=== PATIENT | female | born 1985 ===

== ENCOUNTER 2017-09-20 11:08 | Emergency (ER) | payer OTHER ==
[2017-09-20 11:08] VITALS: BMI 33.1
--- NOTE | 2017-09-20 11:27 | ED PDOC ---
HPI: Abdomen Time Seen by Provider: 09/20/17 11:16 Chief Complaint (Nursing): Abdominal Pain Chief Complaint (Provider): Adbominal pain History Per: Patient Additional Complaint(s): Pt is a 31 yo female, no PMH, presents to ED for evaluation of epigastric pain abdominal pain radiating to lower abdomen and right flank since last night. Reports taking Motrin without relief at 09:00 today. Denies fever, chills, nausea, vomiting, or any additional complaints. Past Medical History Reviewed: Nursing Documentation, Vital Signs Vital Signs: Last Vital Signs Temp 97.9 F 09/20/17 17:30 Pulse 66 09/20/17 17:23 Resp 16 09/20/17 17:23 BP 100/67 09/20/17 17:23 Pulse Ox 97 09/20/17 17:23 - Medical History PMH: No Chronic Diseases - Surgical History Surgical History: Appendectomy - Family History Family History: States: Unknown Family Hx, Diabetes (father), Hypertension ( mother, father) - Living Arrangements Living Arrangements: With Family - Social History Current smoker - smoking cessation education provided: No Alcohol: Social Drugs: Denies - Home Medications Home Medications: Ambulatory Orders Medication Instructions Recorded No Known Home Med 09/20/17 - Allergies Allergies/Adverse Reactions: Allergies Allergy/AdvReac Type Severity Reaction Status Date / Time No Known Allergies Allergy Verified 09/20/17 11:25 Review of Systems ROS Statement: Except As Marked, All Systems Reviewed And Found Negative Gastrointestinal: Positive for: Abdominal Pain Physical Exam - Reviewed Nursing Documentation Reviewed: Yes Vital Signs Reviewed: Yes - Physical Exam Appears: Positive for: Well, Non-toxic, No Acute Distress Head Exam: Positive for: ATRAUMATIC, NORMAL INSPECTION, NORMOCEPHALIC Skin: Positive for: Normal Color, Warm, DRY Eye Exam: Positive for: EOMI, Normal appearance, PERRL ENT: Positive for: Normal ENT Inspection Neck: Positive for: Normal, Painless ROM Cardiovascular/Chest: Positive for: Regular Rate, Rhythm Respiratory: Positive for: CNT, Normal Breath Sounds Gastrointestinal/Abdominal: Positive for: Bowel Sounds, Soft, Tenderness (taurus- umbilical) Back: Positive for: Normal Inspection, R CVA Tenderness Extremity: Positive for: Normal ROM Neurologic/Psych: Positive for: Alert, Oriented - Laboratory Results Result Diagrams: 09/20/17 11:51 09/20/17 11:51 - ECG O2 Sat by Pulse Oximetry: 100 Medical Decision Making Medical Decision Making: IV access established and treatment initiated with Toradol and Zofran XR IMPRESSION: No cholelithiasis or acute cholecystitis. Mild dilatation of the common bile duct without evidence for choledocholithiasis. On re-eval, pt reports pain continues. IV Dilaudid and Zofran administered Amylase and Lipase resulted WNL CBC and COMP resulted WNL CT scan ordered Case endorsed to STEPHANIE Cordova at 1999 pending diagnostic review and re-eval Disposition - Clinical Impression Clinical Impression: Abdominal pain in female - Patient ED Disposition Is Patient to be Admitted: Transfer of Care - Disposition Disposition: Transfer of Care Disposition Time: 19:19 Condition: STABLE Forms: [facility] (Occitan) - POA Present On Arrival: None
[2017-09-20 11:58] LABS: BASO % 0.2 % (0.0-2.0); EOS % 0.3 % (0.0-4.0); HEMATOCRIT 44.4 % (34.0-47.0); LYMPH # 1.2 K/uL (1.0-4.3); LYMPH % 13.1 % (20.0-40.0); MEAN CELL VOLUME 91.2 fl (81.0-99.0); MEAN CORPUSCULAR HEMOGLOBIN 31.3 pg (27.0-31.0); MEAN CORPUSCULAR HGB CONC 34.3 g/dL (33.0-37.0); MEAN PLATELET VOLUME 7.9 fl (7.2-11.7); MONO # 0.4 K/uL (0.0-0.8); MONO % 4.2 % (0.0-10.0); NEUT # 7.7 K/uL (1.8-7.0); NEUT % 82.2 % (50.0-75.0); NRBC % 0.1 % (0.0-0.0); RED CELL DISTRIBUTION WIDTH 12.9 % (11.5-14.5); WHITE BLOOD COUNT 9.4 K/uL (4.8-10.8)
[2017-09-20 12:13] LABS: ALB/GLOB RATIO 1.4 (1.0-2.1); ALKALINE PHOSPHATASE 68 U/L (38-126); ALT/SGPT 35 U/L (9-52); AMYLASE 45 U/L (30-110); AST/SGOT 23 U/L (14-36); BILIRUBIN,TOTAL 0.8 mg/dl (0.2-1.3); BLOOD UREA NITROGEN 15 mg/dl (7-17); CALCIUM 9.3 mg/dL (8.4-10.2); CARBON DIOXIDE 26 mmol/L (22-30); CHLORIDE 106 mmol/L (98-107); GFR AFRICAN-AMERICAN > 60; GLUCOSE,RANDOM 102 mg/dL (65-105); LIPASE 81 U/L (23-300); POTASSIUM 3.9 MMOL/L (3.6-5.0); SODIUM 142 mmol/l (132-148); TOTAL PROTEIN 7.8 G/DL (6.3-8.2)
[2017-09-20 12:28] LABS: RBC URINE 4 /hpf (0-3); URINE BACTERIA RARE (<OCC); URINE BILIRUBIN NEGATIVE (NEGATIVE); URINE BLOOD NEGATIVE (NEGATIVE); URINE COLOR YELLOW (YELLOW); URINE GLUCOSE (UA) NEG (Normal); URINE KETONE NEGATIVE (NEGATIVE); URINE LEUKOCYTE ESTERASE SMALL Leu/uL (Negative); URINE PROTEIN 30 mg/dL (NEGATIVE); URINE UROBILINOGEN 0.2-1.0 mg/dL (0.2-1.0); WBC URINE 8 /hpf (0-5)
[2017-09-20] MEDS ORDERED: Oxycodone/Acetaminophen 5/325 mg Tab PO ONE (13:19)
[2017-09-20] MEDS ORDERED: Oxycodone/Acetaminophen 5/325 mg Tab ONE (13:24)
--- NOTE | 2017-09-20 16:25 | US ---
HISTORY: r/o cholelithiasis, cholecystitis COMPARISON: None. TECHNIQUE: Grayscale imaging was performed. FINDINGS: LIVER: Measures 15.8 cm in length. Normal echogenicity of the liver parenchyma. No mass. No intrahepatic bile duct dilatation. GALLBLADDER: There are no gallstones, wall thickening or pericholecystic fluid. The sonographic Escamilla's sign is negative. . COMMON BILE DUCT: Measures 5.2 mm. No stones. Mild dilatation. PANCREAS: Unremarkable as visualized. No mass. No ductal dilatation. RIGHT KIDNEY: Measures 11.6 cm in length. Normal echogenicity. No calculus, mass, or hydronephrosis. AORTA: No aneurysmal dilatation. IVC: Unremarkable. OTHER FINDINGS: None . IMPRESSION: No cholelithiasis or acute cholecystitis. Mild dilatation of the common bile duct without evidence for choledocholithiasis.
[2017-09-20] MEDS ORDERED: Iohexol 240 (50 ml) PO ONE (16:53)
[2017-09-20] MEDS ORDERED: HYDROmorphone 0.5 mg/0.5 ml ISec IVP STA ×2 (17:14→17:15)
[2017-09-20] MEDS ORDERED: Iohexol 240 (50 ml) ONE (17:19)
[2017-09-20] MEDS ORDERED: HYDROmorphone 0.5 mg/0.5 ml ISec ONE (17:20)
[2017-09-20 17:30] VITALS: TEMP 97.9
[2017-09-20] MEDS ORDERED: Sodium Chloride 0.9% 50 ML IV ONE (19:08)
[2017-09-20] MEDS ORDERED: Iohexol 300 100 ML IJ ONE (19:08)
[2017-09-20 19:42] VITALS: BP 103/69; PULSE 68; RESP 17; O2SAT 99
--- NOTE | 2017-09-20 20:10 | CT ---
EXAM: CT Abdomen and Pelvis With Intravenous Contrast EXAM DATE/TIME: 09/20/2017 4:53 PM CLINICAL HISTORY: 31 years old, female; Pain; Abdominal pain; Periumbilical; Prior surgery; Surgery date: 6+ months; Surgery type: Append removed; Additional info: Syeda-umbilical and flank pain TECHNIQUE: Axial computed tomography images of the abdomen and pelvis with intravenous contrast. All CT scans at this facility use one or more dose reduction techniques, viz.: automated exposure control; ma/kV adjustment per patient size (including targeted exams where dose is matched to indication; i.e. head); or iterative reconstruction technique. Coronal and sagittal reformatted images were created and reviewed. CONTRAST: 95 mL of [id number] administered intravenously. COMPARISON: CT ABD AND PELV W/CONTRAST 2013-04-24. Most recent study 11/15/16 not available for correlation. FINDINGS: Lower thorax: Heart size is normal. There is a small hiatal hernia. There is minimal scarring at the lung bases. ABDOMEN: Liver: There is a 1.7 x 2 x 2.4 cm heterogeneously enhancing lesion in the dome of the liver on the right. No other focal abnormalities are seen in the liver. Gallbladder and bile ducts: Gallbladder is partially distended.Common duct is unremarkable. Pancreas: unremarkable Spleen: unremarkable Adrenals: unremarkable Kidneys and ureters: unremarkable Stomach and bowel: Stomach is partially distended. Rotation is normal. There is no small bowel obstruction. There is fecalization of the terminal ileum. There are multiple clips at the base of the cecum.Colon is incompletely distended which limits evaluation. There is scattered diverticulosisThere are no acute osseous abnormalities. Appendix: Surgically absent PELVIS: Bladder: unremarkable Reproductive: Uterus and adnexal structures are unremarkable. ABDOMEN and PELVIS: Intraperitoneal space: There is a small amount of free fluid in the pelvis.There is no free air. Bones/joints: There are no acute osseous abnormalities. Soft tissues: There is a fat containing umbilical hernia. There are clips in the right lower quadrant and at the base of the cecum Vasculature: Vascular structures are unremarkable. Lymph nodes: There is no pathologic adenopathy. IMPRESSION: Small heterogeneously enhancing lesion in the dome of the liver possibly hemangioma, fatty liver; appendectomy; diverticulosis without CT findings of diverticulitis; no renal or ureteral stones or hydronephrosis; small amount of free fluid in the pelvis, physiologic versus recent cyst rupture; fat-containing umbilical hernia Additional findings as described above.
--- NOTE | 2017-09-20 20:14 | ED PDOC ---
- Laboratory Results Result Diagrams: 09/20/17 11:51 09/20/17 11:51 - ECG O2 Sat by Pulse Oximetry: 99 - Progress ED Course And Treament: case endorsed to information writer from anibal bonilla pending CT EXAM: CT Abdomen and Pelvis With Intravenous Contrast EXAM DATE/TIME: 09/20/2017 4:53 PM CLINICAL HISTORY: 31 years old, female; Pain; Abdominal pain; Periumbilical; Prior surgery; Surgery date: 6+ months; Surgery type: Append removed; Additional info: Syeda-umbilical and flank pain TECHNIQUE: Axial computed tomography images of the abdomen and pelvis with intravenous contrast. All CT scans at this facility use one or more dose reduction techniques, viz.: automated exposure control; ma/kV adjustment per patient size (including targeted exams where dose is matched to indication; i.e. head); or iterative reconstruction technique. Coronal and sagittal reformatted images were created and reviewed. CONTRAST: 95 mL of [id number] administered intravenously. COMPARISON: CT ABD AND PELV W/CONTRAST 2013-04-24. Most recent study 11/15/16 not available for correlation. FINDINGS: Lower thorax: Heart size is normal. There is a small hiatal hernia. There is minimal scarring at the lung bases. ABDOMEN: Liver: There is a 1.7 x 2 x 2.4 cm heterogeneously enhancing lesion in the dome of the liver on the right. No other focal abnormalities are seen in the liver. Gallbladder and bile ducts: Gallbladder is partially distended.Common duct is unremarkable. Pancreas: unremarkable Spleen: unremarkable Adrenals: unremarkable Kidneys and ureters: unremarkable Stomach and bowel: Stomach is partially distended. Rotation is normal. There is no small bowel obstruction. There is fecalization of the terminal ileum. There are multiple clips at the base of the cecum.Colon is incompletely distended which limits evaluation. There is scattered diverticulosisThere are no acute osseous abnormalities. Appendix: Surgically absent PELVIS: Bladder: unremarkable Reproductive: Uterus and adnexal structures are unremarkable. ABDOMEN and PELVIS: Intraperitoneal space: There is a small amount of free fluid in the pelvis.There is no free air. Bones/joints: There are no acute osseous abnormalities. Soft tissues: There is a fat containing umbilical hernia. There are clips in the right lower quadrant and at the base of the cecum Vasculature: Vascular structures are unremarkable. Lymph nodes: There is no pathologic adenopathy. IMPRESSION: Small heterogeneously enhancing lesion in the dome of the liver possibly hemangioma, fatty liver; appendectomy; diverticulosis without CT findings of diverticulitis; no renal or ureteral stones or hydronephrosis; small amount of free fluid in the pelvis, physiologic versus recent cyst rupture; fat-containing umbilical hernia Additional findings as described above. On re-eval, patient states pain improved. Patient admits to 3 episodes of nonbloody diarrhea yesterday and 3 today. Patient states pain "moves" around her abdomen. PO Bentyl ordered Patient educated on findings, discharged with rx Bentyl, macrobid Advised follow up PMD 2-3 days. [place] diet. Fluids Return to ED for worsening/concerning symptoms. Disposition - Clinical Impression Clinical Impression: Abdominal pain in female, UTI (urinary tract infection) - POA Present On Arrival: None - Disposition Referrals: [facility] [Outside] Disposition: Routine/Home Disposition Time: 22:34 Condition: IMPROVED Prescriptions: Dicyclomine [Bentyl] 20 mg PO TID PRN #21 tab PRN Reason: Pain, Mild (1-3) Nitrofurantoin Macrocrystals [Macrobid] 100 mg PO BID #13 cap Instructions: Urinary Tract Infection in Women (ED), Abdominal Pain (ED) Print Language: DJIBOUTIAN
== END 2017-09-20 23:10 | disposition home or self-care (01) ==
LOC: H.ER 11:08
DX: N39.0 Urinary tract infection, site not specified (principal); K42.9 Umbilical hernia without obstruction or gangrene; R19.7 Diarrhea, unspecified; Z90.49 Acquired absence of other specified parts of digestive tract
CPT/HCPCS: 74177; 76705; 80053; 81003; 81025; 82150; 83690; 85025; 96374; 96375; 96376; 99285; J1170; J1885; J2405; Q9966; Q9967

== ENCOUNTER 2018-11-01 20:05 | Emergency (ER) | payer SELFPAY ==
[2018-11-01 20:05] VITALS: BMI 33.1
[2018-11-01 20:15] VITALS: RESP 16
--- NOTE | 2018-11-01 20:47 | ED PDOC ---
HPI: Chest Pain Time Seen by Provider: 11/01/18 20:27 Chief Complaint (Nursing): Chest Pain Chief Complaint (Provider): Chest Pain History Per: Patient History/Exam Limitations: no limitations Onset/Duration Of Symptoms: Days (x2) Current Symptoms Are (Timing): Still Present Additional Complaint(s): The pt is a 34 y/o female with no significant PMHx, who presents to the ED with chest that radiates to her abdomen and upper back. Since yesterday, she has also been experiencing runny nose and SOB. She has not taken any medication to relieve her pain.The pt denies vomiting, chills, cough, fever, sore throat, lower back pain, urinary complaints, or general bodyaches. PCP: patient does not recall. Past Medical History Reviewed: Historical Data, Nursing Documentation, Vital Signs Vital Signs: Last Vital Signs Temp 98.4 F 11/01/18 20:11 Pulse 80 11/01/18 20:11 Resp 16 11/01/18 20:11 BP 111/69 11/01/18 20:11 Pulse Ox 100 11/01/18 20:11 KRISTAL Report Viewed: Yes - Medical History PMH: No Chronic Diseases - Surgical History Surgical History: Appendectomy - Family History Family History: States: Diabetes (father), Hypertension (mother, father) - Social History Alcohol: None - Home Medications Home Medications: Ambulatory Orders Medication Instructions Recorded Dicyclomine [Bentyl] 20 mg PO TID PRN #21 tab 09/20/17 Nitrofurantoin Macrocrystals 100 mg PO BID #13 cap 09/20/17 [Macrobid] Famotidine [Pepcid] 20 mg PO DAILY #14 tab 11/02/18 Oseltamivir Cap [Tamiflu] 75 mg PO BID #10 cap 11/02/18 - Allergies Allergies/Adverse Reactions: Allergies Allergy/AdvReac Type Severity Reaction Status Date / Time No Known Allergies Allergy Verified 11/01/18 20:11 UMESH Risk Score for UA/NSTEMI - UMESH Risk Score Age > 64: NO 3 or more CAD Risk Factors: NO Known CAD (Stenosis greater than 50%): NO Aspirin use in past 7 days: NO Severe Angina: NO EKG ST changes greater than 0.5mm: NO Positive Cardiac Marker: NO UMESH Score: 0 Risk %: 5% Wells Criteria for PE - Wells Criteria for Pulmonary Embolism Clinical Signs and Symptoms of DVT: No P.E is #1 Diagnosis, or Equally Likely: Yes Heart Rate >100: No Immobilization at least 3 days;Surgery previous 4 weeks: No Previous, objectively diagnosed PE or DVT: No Hemoptysis: No Malignancy w/treatment within 6 months, or palliative: No Total Score: 1 Review of Systems ROS Statement: Except As Marked, All Systems Reviewed And Found Negative Constitutional: Negative for: Fever, Chills, Other (general bodyaches) ENT: Positive for: Nose Discharge. Negative for: Throat Pain Cardiovascular: Positive for: Chest Pain Respiratory: Positive for: Shortness of Breath. Negative for: Cough Gastrointestinal: Positive for: Abdominal Pain. Negative for: Vomiting Genitourinary Female: Negative for: Dysuria, Hematuria Musculoskeletal: Positive for: Back Pain (upper). Negative for: Other (lower back pain) Physical Exam - Reviewed Nursing Documentation Reviewed: Yes Vital Signs Reviewed: Yes - Physical Exam Appears: Positive for: No Acute Distress, Uncomfortable Head Exam: Positive for: ATRAUMATIC, NORMAL INSPECTION, NORMOCEPHALIC Skin: Positive for: Normal Color. Negative for: Pallor, Rash Eye Exam: Positive for: Normal appearance, EOMI, PERRL ENT: Positive for: Normal ENT Inspection. Negative for: Pharyngeal Erythema, Tonsillar Swelling Neck: Positive for: Normal Cardiovascular/Chest: Positive for: Regular Rate, Rhythm, Other (Chest wall tenderness). Negative for: Chest Non Tender Respiratory: Positive for: Normal Breath Sounds. Negative for: Respiratory Distress Pulses-Radial (R): 2+ Gastrointestinal/Abdominal: Positive for: Tenderness (epigastric and RUQ) Back: Positive for: Other (upper back muscle tenderness) Extremity: Positive for: Normal ROM (upper/lower) Neurologic/Psych: Positive for: Alert, Oriented - Laboratory Results Result Diagrams: 11/01/18 21:27 11/01/18 21:27 Urine POC: Negative - ECG O2 Sat by Pulse Oximetry: 100 - Progress Re-evaluation Time: 01:00 Condition: Re-examined, Improved Medical Decision Making Medical Decision Making: Time: 2100 Impression: chest and abd pain. Differential diagnosis includes but not limted to: GERD, pancreatitis, aortic/thoracic dissection, ACS, and PE Plan: - CMP - Lipase - Troponin I - Urine - CBC - D Dimer - CXR - Morphine 2mg IVP - IV Fluids - Pepcid 20 mg PO - Blood Culture Time:2034 EKG shows NSR at 82 bpm. Normal QRS with right axis deviation. No ST changes. Time: 2212 --Labs reviewed: no significant clinical abnormality. CT chest/ABD/pelvis additionally ordered. 0043 CT FINDINGS: Normal enhancement of the main pulmonary artery and right and left pulmonary arteries. Normal enhancement of the bilateral peripheral pulmonary arteries. There is no demonstrated pulmonary embolism. Normal thoracic aorta and visualized great vessels. There is no demonstrated aortic dissection. Normal heart and pericardium. Normal mediastinum. Normal hilar regions. Normal visualized trachea and bronchi. The lungs are well expanded. Normal pulmonary parenchyma. Normal pleura. Normal chest wall structures. Normal osseous structures. Normal visualized upper abdomen. IMPRESSION: Normal CTA chest examination, without a demonstrated pulmonary embolism or arterial dissection. COMMENTS: 4.2 cm peripherally enhancing lesion of the right hepatic lobe, possibly a hemangioma. Fat-containing umbilical hernia without incarceration. Appendectomy. The liver is of uniform attenuation without mass or defect. There is no intra or extrahepatic biliary ductal dilatation. The spleen is normal. The gallbladder is within normal limits. The pancreas is of normal contour and attenuation characteristics. There is no evidence of adrenal mass. Both kidneys demonstrate prompt and equal nephrograms. The kidneys are normal in size, shape and configuration. There is no evidence of renal or ureteral mass. No renal or ureteral calculi are identified. There is no hydroureter or hydronephrosis. There is no bowel wall thickening. No evidence for small or large bowel obstruction. There is no evidence of abdominal ascites or lymphadenopathy. There is no evidence of intrinsic or extrinsic bladder mass. There is no pelvic ascites or lymphadenopathy. Images of the lung bases show no evidence of pleural or parenchymal mass. There are no pleural effusions. The bony structures are free of lytic or blastic lesions. IMPRESSION: No evidence of acute abdominal or pelvic pathology. 0046 Labs reviewed and only significant for flu A+, otherwise unremarkable blood, urine, and CT. Scribe Attestation: Documented by Luis Enrique Girard and Mellisa Davila, acting as scribes for Reinaldo Seaman MD. Provider Scribe Attestation: All medical record entries made by the Scribe were at my direction and personally dictated by me. I have reviewed the chart and agree that the record accurately reflects my personal performance of the history, physical exam, medical decision making, and the department course for this patient. I have also personally directed, reviewed, and agree with the discharge instructions and disposition. Disposition - Clinical Impression Clinical Impression: Abdominal pain in female, Chest pain, Influenza A - Patient ED Disposition Is Patient to be Admitted: No Doctor Will See Patient In The: Office Counseled Patient/Family Regarding: Studies Performed, Diagnosis, Need For Followup - Disposition Referrals: [facility] [Outside] Disposition: Routine/Home Disposition Time: 01:03 Condition: GOOD Additional Instructions: LIZETTE MEJIA, thank you for letting us take care of you today. Your p rovider was Reinaldo Seaman MD and you were treated for CHEST/BACK PAIN, DIFFICULTY BREATHING. The emergency medical care you received today was directed at your acute symptoms. If you were prescribed any medication, please fill it and take as directed. It may take several days for your symptoms to resolve. Return to the Emergency Department if your symptoms worsen, do not improve, or if you have any other problems. Please contact your doctor or call one of the physicians/clinics you have been referred to that are listed on the Patient Visit Information form that is included in your discharge packet. Bring any paperwork you were given at discharge with you along with any medications you are taking to your follow up visit. Our treatment cannot replace ongoing medical care by a primary care provider outside of the emergency department. Thank you for allowing the [facility] team to be part of your care today. If you had an X-Ray or CT scan: A Radiologist will review the ED reading if any change in treatment is needed we will contact you. If you had a blood, urine, or wound culture: It will take several days for the results, if any change in treatment is needed we will contact you. If you had an STI test: It will take 48 hours for the results. Please call after 1 week if you have not heard back. Prescriptions: Famotidine [Pepcid] 20 mg PO DAILY #14 tab Oseltamivir Cap [Tamiflu] 75 mg PO BID #10 cap Instructions: Flu, Chest Pain, Stomach Ache and Stomach Upset Print Language: MAORI
[2018-11-01] MEDS ORDERED: Sodium Chloride 0.9% 1,000 ML IV STA (21:00)
[2018-11-01] MEDS ORDERED: Morphine 4 MG/ML VIAL IVP STA (21:00)
[2018-11-01] MEDS ORDERED: Morphine 4 MG/ML VIAL ONE (21:07)
[2018-11-01 21:40] LABS: BASO % 0.5 % (0.0-2.0); EOS % 0.3 % (0.0-4.0); HEMOGLOBIN 14.2 g/dL (12.0-16.0); LYMPH # 1.1 K/uL (1.0-4.3); LYMPH % 17.7 % (20.0-40.0); MEAN CELL VOLUME 94.3 fl (81.0-99.0); MEAN CORPUSCULAR HEMOGLOBIN 31.1 pg (27.0-31.0); MEAN PLATELET VOLUME 8.2 fl (7.2-11.7); MONO # 0.6 K/uL (0.0-0.8); MONO % 10.3 % (0.0-10.0); NEUT # 4.4 K/uL (1.8-7.0); NEUT % 71.2 % (50.0-75.0); NRBC % 0.1 % (0.0-0.0); RBC 4.56 Mil/uL (3.80-5.20); RED CELL DISTRIBUTION WIDTH 13.3 % (11.5-14.5); WHITE BLOOD COUNT 6.1 K/uL (4.8-10.8)
[2018-11-01 21:52] LABS: ALB/GLOB RATIO 1.2 (1.0-2.1); ALBUMIN 4.4 g/dL (3.5-5.0); ALT/SGPT 27 U/L (9-52); AST/SGOT 32 U/L (14-36); BLOOD UREA NITROGEN 12 mg/dl (7-17); GFR NON-AFRICAN AMERICAN > 60; LIPASE 103 U/L (23-300)
[2018-11-01] MEDS ORDERED: Sodium Chloride 0.9% 50 ML IV ONE (23:12)
[2018-11-01] MEDS ORDERED: Iohexol 300 100 ML IJ ONE (23:12)
[2018-11-02 02:00] VITALS: BP 100/58; PULSE 67; TEMP 98; O2SAT 99
--- NOTE | 2018-11-02 12:32 | CARD ---
APPROVED REPORT Date of service: 11/01/2018 EKG Measurement Heart [id number] <Conclusion> Normal sinus rhythm Right axis deviation Right ventricular hypertrophy Abnormal ECG
--- NOTE | 2018-11-02 12:37 | RAD ---
Date of service: 11/01/2018 HISTORY: chest pain COMPARISON: Chest dated 12/24/2016 FINDINGS: LUNGS: Mild bibasilar atelectasis. PLEURA: No significant pleural effusion identified, no pneumothorax apparent. CARDIOVASCULAR: No aortic atherosclerotic calcification present. Heart size upper limits of normal. No pulmonary vascular congestion. OSSEOUS STRUCTURES: No significant abnormalities. VISUALIZED UPPER ABDOMEN: Normal. OTHER FINDINGS: None. IMPRESSION: Mild bibasilar atelectasis..
--- NOTE | 2018-11-02 14:49 | CT ---
Date of service: 11/01/2018 PROCEDURE: CT Chest, Abdomen and Pelvis with intravenous contrast HISTORY: chest pain back pain abdominal pain COMPARISON: CT abdomen/pelvis TECHNIQUE: IV dose administered: 09/20 Radiation dose: Total exam DLP = 677.35 mGy-cm. This CT exam was performed using one or more of the following dose reduction techniques: Automated exposure control, adjustment of the mA and/or kV according to patient size, and/or use of iterative reconstruction technique. FINDINGS: CT CHEST WITH CONTRAST: LUNGS: Clear. No nodule, mass or consolidation. MEDIASTINUM: Unremarkable. Normal caliber aorta and pulmonary arterial trunk. No aortic dissection. Normal size heart. LYMPH NODES: Unremarkable. PLEURA: Unremarkable. No pneumothorax. No pleural fluid. BONES: Unremarkable. OTHER FINDINGS: None. CT ABDOMEN AND PELVIS: LIVER: Normal size, contour and attenuation. In the dome of the right hepatic lobe there is a 2.1 cm heterogeneous enhancing mass, roughly rounded, unchanged in appearance compared to the prior CT of 09/20/2017. Nonspecific. GALLBLADDER AND BILE DUCTS: Unremarkable. PANCREAS: Unremarkable. No gross lesion or ductal dilatation. SPLEEN: Unremarkable. ADRENALS: Unremarkable. No mass. KIDNEYS AND URETERS: Unremarkable. No hydronephrosis. No solid mass. VASCULATURE: No aortic atherosclerotic calcification or mural plaque present. Unremarkable. No aortic aneurysm. BOWEL: Unremarkable. No obstruction. No gross mural thickening. APPENDIX: Status post appendectomy. Surgical changes at cecal apex. PERITONEUM: With small umbilical hernia containing mesenteric fat and no bowel. Several punctate calcifications are seen within this hernia, of no probable clinical significance. LYMPH NODES: Unremarkable. No enlarged lymph nodes. BLADDER: Unremarkable. REPRODUCTIVE: Normal uterus. BONES: No acute fracture. OTHER FINDINGS: None. IMPRESSION: No acute abnormality. Stable heterogeneous enhancing rounded 2.1 cm mass in right hepatic lobe follow-up in 1 year with contrast-enhanced CT. Minor findings as above. The preliminary findings for this examination were reported by [facility] at 12:43 a.m. on 11/02/2018. There is concurrence of this report with the preliminary findings.
== END 2018-11-02 02:00 | disposition home or self-care (01) ==
LOC: H.ER 20:05
DX: R07.89 Other chest pain (principal); R10.9 Unspecified abdominal pain; J09.X2 Influenza due to identified novel influenza A virus with other respiratory manifestations
CPT/HCPCS: 71045; 71260; 74177; 80053; 81025; 83690; 84484; 85025; 85378; 87040; 87804; 93005; 96361; 96374; 96375; 99284; J2270; J7030; Q9967

== ENCOUNTER 2019-01-27 16:16 | Emergency (ER) | payer OTHER ==
[2019-01-27 16:16] VITALS: BMI 33.1
--- NOTE | 2019-01-27 17:57 | ED PDOC ---
HPI: Chest Pain Time Seen by Provider: 01/27/19 17:13 Chief Complaint (Nursing): Chest Pain Chief Complaint (Provider): Chest Pain History Per: Patient History/Exam Limitations: no limitations Onset/Duration Of Symptoms: Days (x2) Current Symptoms Are (Timing): Still Present Additional Complaint(s): 33 year old female presents to the emergency department with a complaint of left-sided chest pain radiating to her left arm associated with shortness of breath since yesterday. She denies history of asthma, cough, exposure to chemicals or smoke. PCP: Lew Yates Past Medical History Reviewed: Historical Data, Nursing Documentation, Vital Signs Vital Signs: Last Vital Signs Temp 98.6 F 01/27/19 16:23 Pulse 69 01/27/19 16:30 Resp 16 01/27/19 16:23 BP 104/58 L 01/27/19 16:23 Pulse Ox 100 01/27/19 16:23 - Medical History PMH: No Chronic Diseases Denies: Chronic Kidney Disease - Surgical History Surgical History: Appendectomy - Family History Family History: States: Unknown Family Hx, Diabetes (father), Hypertension (mother, father) - Home Medications Home Medications: Ambulatory Orders Medication Instructions Recorded Dicyclomine [Bentyl] 20 mg PO TID PRN #21 tab 09/20/17 Nitrofurantoin Macrocrystals 100 mg PO BID #13 cap 09/20/17 [Macrobid] Famotidine [Pepcid] 20 mg PO DAILY #14 tab 11/02/18 Oseltamivir Cap [Tamiflu] 75 mg PO BID #10 cap 11/02/18 - Allergies Allergies/Adverse Reactions: Allergies Allergy/AdvReac Type Severity Reaction Status Date / Time No Known Allergies Allergy Verified 01/27/19 16:22 UMESH Risk Score for UA/NSTEMI - UMESH Risk Score Age > 64: NO 3 or more CAD Risk Factors: NO Known CAD (Stenosis greater than 50%): NO Aspirin use in past 7 days: NO Severe Angina: NO EKG ST changes greater than 0.5mm: NO Positive Cardiac Marker: NO UMESH Score: 0 Risk %: 5% Review of Systems ROS Statement: Except As Marked, All Systems Reviewed And Found Negative Cardiovascular: Positive for: Chest Pain (left-sided, sharp) Respiratory: Positive for: Shortness of Breath. Negative for: Cough Musculoskeletal: Positive for: Arm Pain (left-sided) Physical Exam - Reviewed Nursing Documentation Reviewed: Yes Vital Signs Reviewed: Yes - Physical Exam Appears: Positive for: No Acute Distress Head Exam: Positive for: ATRAUMATIC, NORMAL INSPECTION, NORMOCEPHALIC Skin: Positive for: Normal Color Eye Exam: Positive for: Normal appearance ENT: Positive for: Normal ENT Inspection Neck: Positive for: Normal, Supple Cardiovascular/Chest: Positive for: Regular Rate, Rhythm, Other (reproducible left-sided tenderness without skin or breast abnormality). Negative for: Chest Non Tender Respiratory: Positive for: Normal Breath Sounds. Negative for: Respiratory Distress Gastrointestinal/Abdominal: Positive for: Normal Exam, Soft. Negative for: Tenderness Back: Positive for: Normal Inspection Extremity: Positive for: Normal ROM (upper/lower) Neurological/Psych: Positive for: Awake, Alert, Normal Tone, Mood/Affect (tearful). Negative for: Motor/Sensory Deficits - Laboratory Results Result Diagrams: 01/27/19 18:10 01/27/19 18:10 - ECG O2 Sat by Pulse Oximetry: 100 (RA) Pulse Ox Interpretation: Normal Medical Decision Making Medical Decision Making: Time: 1729 Initial Plan: work-up for chest pain. low suspicion for cardiac ideology. * EKG * Labs with troponin and ddimer * Toradol 15mg IVP * Re-assessment Time: 2009 --Cardiac work-up were unremarkable. CXR: (-) active disease or abnormality. Upon provider reevaluation, patient is medically stable, reports improvement in pain after Toradol, and requires no further treatment in the ED at this time. Patient will be discharged home with instructions for outpatient followup. Counseling was provided and all questions were answered regarding. There is agreement to discharge plan. Return if symptoms persist or worsen. Clinical Impression: Atypical chest pain Scribe Attestation: Documented by Mellisa Davila, acting as a scribe for Lashawn Palomo MD. Provider Scribe Attestation: All medical record entries made by the Scribe were at my direction and personally dictated by me. I have reviewed the chart and agree that the record accurately reflects my personal performance of the history, physical exam, medical decision making, and the department course for this patient. I have also personally directed, reviewed, and agree with the discharge instructions and disposition. Disposition - Clinical Impression Clinical Impression: Atypical chest pain - Patient ED Disposition Is Patient to be Admitted: No Counseled Patient/Family Regarding: Studies Performed, Diagnosis, Need For Followup - Disposition Referrals: [facility] [Outside] Disposition: Routine/Home Disposition Time: 20:10 Condition: IMPROVED Additional Instructions: Take Motrin or Tylenol for pain. Follow up with primary medical doctor as needed. Instructions: Chest Pain That Is Not Caused by the Heart (DC) Forms: [employer] (Persian) Print Language: PERSIAN
[2019-01-27 18:16] LABS: BASO % 0.2 % (0.0-2.0); EOS # 0.1 K/uL (0.0-0.7); EOS % 1.7 % (0.0-4.0); HEMOGLOBIN 14.3 g/dL (12.0-16.0); LYMPH # 2.4 K/uL (1.0-4.3); LYMPH % 36.7 % (20.0-40.0); MEAN CORPUSCULAR HEMOGLOBIN 31.5 pg (27.0-31.0); MEAN CORPUSCULAR HGB CONC 33.5 g/dL (33.0-37.0); MEAN PLATELET VOLUME 7.9 fl (7.2-11.7); MONO # 0.5 K/uL (0.0-0.8); MONO % 7.2 % (0.0-10.0); NEUT # 3.6 K/uL (1.8-7.0); NEUT % 54.2 % (50.0-75.0); NRBC % 0.1 % (0.0-0.0); RBC 4.54 Mil/uL (3.80-5.20); RED CELL DISTRIBUTION WIDTH 13.3 % (11.5-14.5); WHITE BLOOD COUNT 6.6 K/uL (4.8-10.8)
[2019-01-27 18:26] LABS: BLOOD UREA NITROGEN 15 mg/dl (7-17); CALCIUM 9.5 mg/dL (8.4-10.2); GFR NON-AFRICAN AMERICAN > 60
[2019-01-27 20:30] VITALS: BP 112/70; PULSE 66; RESP 20; TEMP 97.7; O2SAT 99
--- NOTE | 2019-01-28 09:18 | CARD ---
APPROVED REPORT Date of service: 01/27/2019 EKG Measurement Heart [id number] <Conclusion> Normal sinus rhythm Right axis deviation Incomplete right bundle branch block Abnormal ECG
--- NOTE | 2019-01-28 14:30 | RAD ---
Date of service: 01/27/2019 HISTORY: cough COMPARISON: Comparison is made with 11/01/2028 TECHNIQUE: Chest PA and lateral views FINDINGS: LUNGS: No evidence of new infiltrate or consolidation in the lungs PLEURA: No significant pleural effusion identified. No pneumothorax apparent. CARDIOVASCULAR: No aortic atherosclerotic calcification present. Normal cardiac size. No pulmonary vascular congestion. OSSEOUS STRUCTURES: No significant abnormalities. VISUALIZED UPPER ABDOMEN: Normal. OTHER FINDINGS: None. IMPRESSION: No active disease.
== END 2019-01-27 20:30 | disposition home or self-care (01) ==
LOC: H.ER 16:16
DX: R07.89 Other chest pain (principal)
CPT/HCPCS: 71046; 80048; 81025; 84484; 85025; 85378; 93005; 96374; 99285; J1885